=== PATIENT | female | born 1945 | race African-American/Black ===

== ENCOUNTER 2016-08-10 14:52 | Emergency (ER) | payer OTHER ==
[2016-08-10 16:10] VITALS: BP 165/101
[2016-08-10 16:38] LABS: Basophils % (Auto) 0.2 % (0.0-1.8); Eosinophils % (Auto) 0.1 % (0.0-4.3); Hematocrit 42.1 % (30.3-42.9); Hemoglobin 13.9 gm/dl (10.1-14.3); Mean Corpuscular HGB Conc 33 % (30-34); Mean Corpuscular Hemoglobin 31 pg (28-32); Mean Corpuscular Volume 94 fl (79-97); Platelet Count 199 K/mm3 (140-440); Red Cell Distribution Width 13.5 % (13.2-15.2); White Blood Count 6.4 K/mm3 (4.5-11.0)
[2016-08-10 16:56] LABS: Anion Gap 16 mmol/L; Blood Urea Nitrogen 15 mg/dL (7-17); Carbon Dioxide 26 mmol/L (22-30); Chloride 101.1 mmol/L (98-107); Glucose 151 mg/dL (65-100); Potassium 4.5 mmol/L (3.6-5.0); Sodium 139 mmol/L (137-145)
[2016-08-10 16:56] LABS: Bilirubin,Urine NEG (Negative); Blood,Urine NEG (Negative); Ketones,Urine 80 mg/dL (Negative); Leukocyte Esterase,Urine NEG (Negative); Mucus,Urine 2+ /HPF; Nitrite,Urine NEG (Negative); Protein,Urine <15 mg/dL mg/dL (Negative); Urobilinogen,Urine < 2.0 mg/dL (<2.0); WBC,Urine < 1.0 /HPF (0.0-6.0)
--- NOTE | 2016-08-11 14:54 | ED Elopement Review ---
ED Pt Elopement review - Results review Lab results: Laboratory Tests 08/10/16 08/10/16 08/10/16 16:23 16:23 16:31 WBC 6.4 RBC 4.50 Hgb 13.9 Hct 42.1 MCV 94 MCH 31 MCHC 33 RDW 13.5 Plt Count 199 Lymph % (Auto) 9.3 L Dawson % (Auto) 3.3 Eos % (Auto) 0.1 Baso % (Auto) 0.2 Lymph # 0.6 L Dawson # 0.2 Eos # 0.0 Baso # 0.0 Seg Neutrophils % 87.1 H Seg Neutrophils # 5.6 Sodium 139 Potassium 4.5 Chloride 101.1 Carbon Dioxide 26 Anion Gap 16 BUN 15 Creatinine 0.5 L Estimated GFR > 60 BUN/Creatinine Ratio 30.00 Glucose 151 H Calcium 9.0 Urine Color Yellow Urine Turbidity Clear Urine pH 6.0 Ur Specific [place] 1.018 Urine Protein <15 mg/dl Urine Glucose (UA) 50 Urine Ketones 80 Urine Blood Neg Urine Nitrite Neg Urine Bilirubin Neg Urine Urobilinogen < 2.0 Ur Leukocyte Esterase Neg Urine WBC (Auto) < 1.0 Urine RBC (Auto) 2.0 U Epithel Cells (Auto) < 1.0 Urine Mucus 2+ - Call Back decision Pt Call Back Decision: Pt to F/U with PMD
== END 2016-08-11 01:05 | disposition left against medical advice (07) ==
LOC: ED 14:52
DX: R11.2 Nausea with vomiting, unspecified (principal); R53.83 Other fatigue; R51 Headache; Z53.21 Procedure and treatment not carried out due to patient leaving prior to being seen by health care provider
CPT/HCPCS: 36415; 80048; 81001; 85025; 93005; 93010